=== PATIENT | female | born 1955 | race Caucasian/White ===

== ENCOUNTER 2016-10-16 07:31 | Day surgery (SDC) | payer BC ==
[~2016-10-16 07:31] MED LIST: Bupivacaine 0.25%/EPINEPHrine 1:200,000 10 ML SDV ONE; Dexamethasone/Tobramycin 0.1-0.3% Ophth Oint 3.5 GM Tube ONE; Lactated Ringers 1,000 ML IV SCH; Tetracaine 0.5% Ophth Soln 15 ML Bottle ONE
[2016-10-16] MEDS ORDERED: ceFAZolin 2 GM in Premix Bag 1 BAG IV ONE (08:00)
[2016-10-16] MEDS ORDERED: Bupivacaine 0.25%/EPINEPHrine 1:200,000 10 ML SDV INJECT ONE (08:00)
[2016-10-16] MEDS ORDERED: Lidocaine 2% 5 ML SDV ONE (08:54)
[2016-10-16] MEDS ORDERED: diphenhydrAMINE 50 MG/ML SDV ONE (08:54)
[2016-10-16] MEDS ORDERED: Sodium Chloride 0.9% 20 ML ONE (08:54)
[2016-10-16] MEDS ORDERED: ceFAZolin 1 GM Vial ONE (08:55)
[2016-10-16] MEDS ORDERED: Midazolam 1 MG/ML 2 ML SDV ONE (09:01)
--- NOTE | 2016-10-16 09:02 | PCM.PREANE ---
Preanesthetic Assessment - Anesthesia/Transfusion/Family Hx Anesthesia History: Prior Anesthesia Without Reaction Family History of Anesthesia Reaction: No Transfusion History: No Prior Transfusion(s) Intubation History: Unknown - Review of Systems General: No Symptoms Pulmonary: No Symptoms Cardiovascular: No Symptoms Gastrointestinal: No Symptoms Neurological: No Symptoms Other: Reports: None - Physical Assessment Height: 1.65 m Weight: 101.605 kg ASA Class: 2 Mental Status: Alert & Oriented x3 Airway Class: Mallampati = 2 Dentition: Reports: Normal Dentition Thyro-Mental Finger Breadths: 3 Mouth Opening Finger Breadths: 3 ROM/Head Extension: Full Lungs: Clear to Auscultation, Normal Respiratory Effort Cardiovascular: Regular Rate, Regular Rhythm - Allergies Allergies/Adverse Reactions: Allergies Allergy/AdvReac Type Severity Reaction Status Date / Time No Known Allergies Allergy Verified 10/11/16 16:34 - Blood Blood Available: No - Anesthesia Plan Pre-Op Medication Ordered: None - Acknowledgements Anesthesia Type Planned: MAC Pt an Appropriate Candidate for the Planned Anesthesia: Yes Alternatives and Risks of Anesthesia Discussed w Pt/Guardian: Yes Pt/Guardian Understands and Agrees with Anesthesia Plan: Yes PreAnesthesia Questionnaire HEENT History: Reports: Allergic Rhinitis, Hard of Hearing Other HEENT History: wears glasses, has bilateral hearing aides Cardiovascular History: Reports: None Respiratory History: Reports: None Gastrointestinal History: Reports: None Genitourinary History: Reports: Urinary Incontinence [employer]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: Musculoskeletal History: Reports: Back Pain, Chronic, Fracture Other Musculoskeletal History: has degenerative disc disease, hx of fx ribs- right side Neurological History: Other Neuro History: has degenerative disc disease, lower back Psychiatric History: Reports: Depression Endocrine/Metabolic History: Reports: Hypothyroidism (after treatmnent with radioactive iodine for hyperthyroidisms), Obesity/BMI 30+ Hematologic History: Reports: None Immunologic History: Reports: None Oncologic (Cancer) History: Reports: None Dermatologic History: Reports: None - Past Surgical History Head Surgeries/Procedures: Reports: None GI Surgical History: Reports: Other (See Below) Other GI Surgeries/Procedures: 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 Female Surgical History: Reports: Other (See Below) Other Female Surgeries/Procedures: TOVT - SUBSTANCE USE Smoking Status *Q: Former Smoker (quit 10 years ago) Recreational Drug Use History: No - HOME MEDS Home Medications: Home Meds Levothyroxine Sodium [Levoxyl] 150 mcg PO DAILY 08/22/13 [History] FLUoxetine [PROzac] 10 mg PO DAILY 10/11/16 [History] - CURRENT (IN HOUSE) MEDS Current Meds: Current Medications Lactated Ringer's (Ringers, Lactated) 1,000 mls @ 125 mls/hr IV ASDIRECTED VALERIE Last Admin: 10/16/16 08:20 Dose: 125 mls/hr Discontinued Medications Bupivacaine HCl/Epinephrine Bitart (Marcaine 0.25%/Epinephrine 1:200,000) 10 ml INJECT ONETIME ONE Stop: 10/16/16 08:01 Bupivacaine HCl/Epinephrine Bitart (Marcaine 0.25%/Epinephrine 1:200,000) Confirm Administered Dose 20 ml .ROUTE .STK-MED ONE Stop: 10/16/16 07:29 Cefazolin Sodium (Ancef) Confirm Administered Dose 1 gm .ROUTE .STK-MED ONE Stop: 10/16/16 08:56 Diphenhydramine HCl (Benadryl) Confirm Administered Dose 50 mg .ROUTE .STK-MED ONE Stop: 10/16/16 08:55 Cefazolin Sodium/Dextrose 2 gm (/ Premix) 50 mls @ 100 mls/hr IV ONETIME ONE Stop: 10/16/16 08:29 Sufentanil Citrate (Sufentanil Citrate) Confirm Administered Dose 1 mls @ as directed .ROUTE .STK-MED ONE Stop: 10/16/16 07:33 Sodium Chloride (Normal Saline) Confirm Administered Dose 20 mls @ as directed .ROUTE .STK-MED ONE Stop: 10/16/16 08:55 Cefazolin Sodium/Dextrose (Ancef) Confirm Administered Dose 50 mls @ as directed .ROUTE .STK-MED ONE Stop: 10/16/16 08:56 Lidocaine (Xylocaine-Mpf 2%) Confirm Administered Dose 5 ml .ROUTE .STK-MED ONE Stop: 10/16/16 08:55 Tetracaine (Tetracaine 0.5% Ophth Soln) Confirm Administered Dose 15 ml .ROUTE .STK-MED ONE Stop: 10/16/16 07:29 Tobramycin/Dexamethasone (Tobradex Ophth Oint) Confirm Administered Dose 3.5 gm .ROUTE .STK-MED ONE Stop: 10/16/16 07:30
[2016-10-16] MEDS ORDERED: Propofol 200 MG/20 ML SDV ONE (09:25)
--- NOTE | 2016-10-16 11:30 | PCM48HPAN ---
Post Anesthesia Note - EVALUATION WITHIN 48HRS OF ANESTHETIC Vital Signs in Normal Range: Yes Patient Participated in Evaluation: Yes Respiratory Function Stable: Yes Airway Patent: Yes Cardiovascular Function Stable: Yes Hydration Status Stable: Yes Pain Control Satisfactory: Yes Nausea and Vomiting Control Satisfactory: Yes Mental Status Recovered: Yes - COMMENTS/OBSERVATIONS Free Text/Narrative:: No anesthesia problems. Patient skipped recovery room phase of postoperative care.
[2016-10-16 12:38] VITALS: BP 140/87
--- NOTE | 2016-10-17 16:55 | PCM.OPNOTE ---
- General Post-Op/Procedure Note Date of Surgery/Procedure: 10/16/16 Operative Procedure(s): bilateral upper lid levator advancement for ptosis Pre Op Diagnosis: levator dehiscence bilaterally causing ptosis Post-Op Diagnosis: Same Anesthesia Technique: Local, MAC Primary Surgeon: Elis Laboy Experimental Electronics Developer: Anuradha Max Complications: None Condition: Good Free Text/Narrative:: [id number]
--- NOTE | 2016-10-17 21:07 | OR ---
SURGEON: ODALYS MCKEON MD DATE OF PROCEDURE: 10/16/2016 PREOPERATIVE DIAGNOSIS: Bilateral upper lid ptosis with levator advancement, worse on the left than the right. POSTOPERATIVE DIAGNOSIS: Bilateral upper lid ptosis with levator advancement, worse on the left than the right. PROCEDURE: Bilateral levator external advancement causing ptosis with excision of excess skin. ANESTHESIA: Local MAC. INSURANCE CLAIM REPRESENTATIVE: TEODORO Gray. INDICATIONS: Ms. 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 This is causing significant ptosis of her upper eyelids. She has had significant visual obstruction with negative MRD value. We discussed risks and benefits of levator advancement and she was in agreement to proceed. Risks were including, but not limited to, bleeding, infection, damage to underlying or overlying structures, possible need for future interventions and possible scarring. In addition to levator advancement, she will have excess skin removed once the levator is advanced because there will likely be dermatochalasis as well, multifactorial cause to her visual obstruction. Risks and benefits were discussed with her and she was in agreement to proceed. PROCEDURE IN DETAIL: After informed consent was obtained and placed on the chart, the patient was brought to the operating theater and in supine position. After adequate local MAC anesthetic was obtained, the area was prepped and draped, a time-out was completed to confirm side and site. Attention was then paid to the dissection of the upper eye lid incision as marked by a 0.8 cm excessive skin. Once adequately marked for an excision of 0.8, the area was anesthetized with quarter percent Marcaine with epinephrine in a field block. Once adequately anesthetized, attention was then paid to dissection of the skin with removal of the excess. Dissection was then carried through the muscular layer and the orbital septum was reached. Dissection was carried through this later until location of the levator aponeurosis and the superior tarsus. There was appreciated to be severe dehiscence here and a gap between the two ends. This was reapproximated and sutured in place using a 4-0 PDS suture in an interrupted fashion with several sutures. Once this was reapproximated, the meticulous hemostasis was obtained using Bovie electrocautery. The septum was then closed, the muscular layer was then closed, and the skin was closed in a running fashion using a 6-0 Prolene. The contralateral procedure was performed on the right side as well. Slight over- correction on the left to compensate for the likely future relaxation. Eyes were gently able to be closed at the end of the case. Once adequately completed and the wound had been sutured closed, the sutures were Steri-Stripped in place, the incision were dressed with TobraDex. Corneal protectors were placed prior to the beginning of the procedure and removed at the end of the case. She tolerated this well and all counts of needles were correct at the end of this case. FOLLOWUP INSTRUCTIONS: The patient will see us in clinic in approximately 1 week, sooner with any problems, questions, or concerns. TobraDex ointment was sent home and she was given a prescription for pain control. TRESSA / MARILOU /[id number]
== END 2016-10-16 11:50 | disposition home or self-care (01) ==
LOC: MW.SDS 07:31
PROVIDERS: ATTEND Plastic Surgery
DX: H02.403 Unspecified ptosis of bilateral eyelids (principal); F32.9 Major depressive disorder, single episode, unspecified; E03.8 Other specified hypothyroidism; Z79.899 Other long term (current) drug therapy; Z98.890 Other specified postprocedural states; Z87.891 Personal history of nicotine dependence
CPT/HCPCS: 67904; A9270; J0690; J1200; J2250; J7120; 00103; J2704